=== PATIENT | male | born 1940 | race Caucasian/White ===

== ENCOUNTER 2019-01-21 09:30 | Emergency (ER) | payer MEDICARE ==
[~2019-01-21] VITALS: Ht 180.3 cm; Wt 77.1 kg
--- NOTE | 2019-01-21 09:47 | NUR ---
PT DOES NOT REMEMBER HIS HOME MEDICATION DOSAGES AND NAMES. PT's WILL BRING HOME MEDICATION LIST LATER.
[2019-01-21] MEDS ORDERED: IV NORMAL SALINE 1000 ML BAG IV ONE (10:00)
[2019-01-21] MEDS ORDERED: ONDANSETRON 4 MG/2 ML VIAL IV ONE (10:00)
[2019-01-21] MEDS ORDERED: ONDANSETRON 4 MG/2 ML VIAL ONE (10:19)
[2019-01-21 10:24] LABS: HEMATOCRIT 41.1 % (36.7-47.1); HEMOGLOBIN 13.5 g/dL (12.5-16.3); MEAN CORPUSCULAR HEMOGLOBIN 29.3 uug (23.8-33.4); MEAN CORPUSCULAR HGB CONC 33 g/dL (32.5-36.3); MEAN CORPUSCULAR VOLUME 89.1 fL (73.0-96.2); PLATELET COUNT (AUTO) 210 K/uL (152-348); RED BLOOD CELL COUNT(AUTO) 4.61 MIL/uL (4.06-5.63); WHITE BLOOD COUNT (AUTO) 11.5 K/uL (3.6-10.2)
[2019-01-21 10:32] LABS: LYMPHOCYTES % (AUTO) 2.1 % (20.5-51.5); MONOCYTES % (AUTO) 2.7 % (0.0-11.0); NEUTROPHILS % (AUTO) 94.7 % (38.5-71.5)
[2019-01-21 10:33] LABS: BASOPHILS % (AUTO) 0.3 % (0.0-2.0); CREATININE 1.2 mg/dL (0.6-1.3); EOSINOPHILS % (AUTO) 0.2 % (0.0-7.0); LYMPHOCYTES # (AUTO) 0.2 K/uL (20.0-40.0); MONOCYTES # (AUTO) 0.3 K/uL (2.0-10.0); NEUTROPHILS # (AUTO) 10.8 K/uL (1.8-8.9); POTASSIUM 4.6 mmol/L (3.5-5.1)
[2019-01-21 10:39] LABS: BILIRUBIN,DIRECT 0.2 mg/dL (0.0-0.2); BILIRUBIN,TOTAL 0.9 mg/dL (0.2-1.0); TOTAL PROTEIN, SERUM 7.7 g/dL (6.4-8.2)
--- NOTE | 2019-01-21 11:15 | NUR ---
PO challenge initiated.
--- NOTE | 2019-01-21 11:25 | NUR ---
Patient able to hold down small amounts of fluid w/o having nausea and is tolerating well.
--- NOTE | 2019-01-21 11:30 | NUR ---
Patient discharged to home in stable conditon. Written and verbal after care instructions given. Patient verbalizes understanding of instructions. Patient ambulatd with stable gait.
[2019-01-21 11:39] VITALS: BP 121/81
== END 2019-01-21 11:40 | disposition home or self-care (01) ==
LOC: ER 09:30
DX: R19.7 Diarrhea, unspecified (principal); R11.10 Vomiting, unspecified; I25.10 Atherosclerotic heart disease of native coronary artery without angina pectoris; E11.9 Type 2 diabetes mellitus without complications
CPT/HCPCS: 36415; 80048; 80076; 83690; 84484; 85025; 85730; 93005; 96361; 96374; 99284; J2405; 70030-TC; A4663; J7030